=== PATIENT | female | born 2000 | race Two or more races ===

== ENCOUNTER 2024-03-02 13:24 | Emergency (ER) | payer MEDICAID ==
[~2024-03-02] VITALS: Ht 162.6 cm; Wt 55.0 kg
[2024-03-02 13:52] LABS: Urine Bacteria None Seen /hpf (None Seen)
--- NOTE | 2024-03-02 13:57 | ED.PDOC ---
GI ASSESSMENT HPI Comments 24-year-old female came to the ER stating that she has been having abdominal discomfort for the past few days progressively getting worse. Patient states that she has been having nausea vomiting for a week. Her last menstrual period was early January. She is very anxious. She does not want her mother to be informed. Denies any past medical surgical history. 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: No Pertinent DROSS PULLER History Social History Smoker: Non-Smoker Alcohol: Denies ETOH Use, Heavy Drugs: Denies Drug Use Lives In: Home Constitutional: denies: chills, diaphoresis, fatigue, fever, malaise, sweats, weakness, others EENTM: denies: blurred vision, double vision, ear bleeding, ear discharge, ear drainage, ear pain, ear ringing, eye pain, eye redness, hearing loss, mouth pain, mouth swelling, nasal discharge, nose bleeding, nose congestion, nose pain, photophobia, tearing, throat pain, throat swelling, voice changes, others Respiratory: denies: cough, hemoptysis, orthopnea, SOB at rest, shortness of breath, SOB with excertion, stridor, wheezing, others Cardiovascular: denies: chest pain, dizzy spells, diaphoresis, Dyspnea on exertion, edema, irregular heart beat, left arm pain, lightheadedness, palpitations, PND, syncope, others Gastrointestinal: reports: nausea, vomiting; denies: abdomen distended, abdominal pain, blood streaked bowels, constipated, diarrhea, dysphagia, difficulty swallowing, hematemesis, melena, poor appetite, poor fluid intake, rectal bleeding, rectal pain, others Genitourinary: denies: abnormal vagina bleeding, burning, dyspareunia, dysuria, flank pain, frequency, hematuria, incontinence, pain, , vagina discharge, urgency, others Neurological: denies: dizziness, fainting, headache, left sided numbness, left sided weakness, numbness, paresthesia, pre-existing deficit, right sided numbness, right sided weakness, seizure, speech problems, tingling, tremors, weakness, others Musculoskeletal: denies: back pain, gout, joint pain, joint swelling, muscle pain, muscle stiffness, neck pain, others Integumetry: denies: bruises, change in color, change in hair/nails, dryness, laceration, lesions, lumps, rash, wounds, others Allergic/Immunocompromised: denies: Difficulty Healing, Frequent Infections, Hives, Itching, others Hematologic/Lymphatic: denies: anemia, blood clots, easy bleeding, easy bruising, swollen glands, others Endocrine: denies: excessive hunger, excessive sweating, excessive thirst, excessive urination, flushing, intolerance to cold, intolerance to heat, unexplained weight gain, unexplained weight loss, others Psychiatric: denies: anxiety, bipolar disorder, depression, hopeless, panic disorder, schizophrenia, sleepless, suicidal, others Physical Exam General Appearance: Moderate Distress HEENT: Normal ENT Inspection, Pharynx Normal, TMs Normal Neck: Full Range of Motion, Non-Tender, Normal, Normal Inspection Respiratory: Chest Non-Tender, Lungs Clear, No Accessory Muscle Use, No Respiratory Distress, Normal Breath Sounds Cardiovascular: No Edema, No JVD, No Murmur, No Gallop, Normal Peripheral Pulses, Regular Rate/Rhythm Breast Exam: Deferred Gastrointestinal: No Organomegaly, Non Tender, No Pulsatile Mass, Normal Bowel Sounds, Soft Genitalia: Deferred Pelvic: Deferred Rectal: Deferred Extremities: No calf tenderness, Normal capillary refill, Normal inspection, Normal range of motion, Non-tender, No pedal edema Musculoskeletal : Apperance: Normal 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 Was a procedure done?: No GI differential Dx Differential Diagnosis: Constipation, Diverticular disease, Esophagitis, Gastritis/PUD, Gastroenteritis X-Ray, Labs, Meds, VS Vital Signs Date Time Temp Pulse Resp B/P (MAP) Pulse Ox O2 Delivery O2 Flow Rate FiO2 03/02/24 13:36 97.9 100 14 150/100 (117) 100 Lab Test 03/02/24 14:28 03/02/24 13:36 Range/Units Beta HCG, Quantitative 7360.9 H 1.5-4.2 mIU/mL Urine Color Yellow Yellow Urine Clarity Clear Clear Urine pH 6.0 5.0-9.0 Urine Specific [place] 1.017 1.001-1.035 Urine Protein Trace H Negative Urine Ketones 2+ H Negative Urine Blood Negative Negative /uL Urine Nitrite Negative Negative Urine Bilirubin Negative Negative Urine Urobilinogen Normal Negative mg/dL Urine Leukocyte Esterase Negative Negative /uL Urine RBC 2 0 - 4 /hpf Urine WBC 2 0 - 5 /hpf Urine Squamous Epithelial Cells Few <5 /hpf Urine Bacteria None seen None Seen /hpf Urine Mucus Few None Seen Urine Glucose Normal Normal mg/dL Urine Opiates Screen Neg NEGATIVE Urine Fentanyl Screen Neg NEGATIVE Urine Barbiturates Screen Neg NEGATIVE Urine Phencyclidine Screen Neg NEGATIVE Urine Amphetamines Screen Neg NEGATIVE Urine Benzodiazepines Screen Neg NEGATIVE Urine Cocaine Screen Neg NEGATIVE Urine Cannabinoids Screen Neg NEGATIVE Patient alert. No sign of any distress. She is . She is anxious. Saturation pristine on room air. Denies vaginal bleeding. Denies cramping. Very emotional. Beta quant appropriate. Ultrasound reviewed does show sac early . Need to repeat blood work along with ultrasound. She was told to take vitamins. Explained to the patient. Was told to follow up with her OBGYN. Was told to follow up with her primary care physician. Was told to come back if there is any problem. Time of 1ST Reevaluation: 13:56 Reevaluation 1ST: Improved Patient Education/Counseling: Diagnosis, Treatment, Prognosis Family Education/Counseling: No Family Present Departure 1 Departure Time of Disposition: 13:56 Impression: Primary Impression: Normal Qualified Codes: Z34.90 - Encounter for supervision of normal , unspecified, unspecified trimester Disposition: 01 HOME / SELF CARE / HOMELESS Condition: Good Discharged With: Self Critical Care Note Critical Care Time?: No Stability Stability form required: No Heart Score Heart Score: Heart Score Response (Comments) Value History N/A 0 EKG N/A 0 Age N/A 0 Risk Factors N/A 0 Troponin N/A 0 Total 0 PATRICE HERNANDEZ MD Mar 02, 2024 13:57
[2024-03-02] MEDS ORDERED: MORPHINE SULFATE 4 MG/ML SYR/VIAL IV ONE (14:00)
[2024-03-02] MEDS ORDERED: SODIUM CHLORIDE 0.9% 1,000 ML IVB ONE (14:00)
[2024-03-02] MEDS ORDERED: ONDANSETRON HCL 4 MG/2 ML VIAL IV ONE (14:00)
[2024-03-02 14:20] LABS: Urine Blood Negative /uL (Negative); Urine Clarity Clear (Clear); Urine Color Yellow (Yellow); Urine Mucus FEW (None Seen); Urine Protein, UAD TRACE (Negative); Urine Specific Gravity 1.017 (1.001-1.035); Urine Urobilinogen Normal (Negative); Urine WBC 2 /hpf (0 - 5)
[2024-03-02 14:34] LABS: Amphetamine Screen, Urine Neg (NEGATIVE); Benzodiazephine Screen, Urine Neg (NEGATIVE)
[2024-03-02 14:35] LABS: Barbiturate Scree,Urine Neg (NEGATIVE); Cannabinoid Screen, Urine Neg (NEGATIVE); Cocaine Screen, Urine Neg (NEGATIVE); Opiate Scree,Urine Neg (NEGATIVE); Phencyclidine Screen, Urine Neg (NEGATIVE)
--- NOTE | 2024-03-02 16:12 | DVH ---
OB ULTRASOUND <14 WEEKS: HISTORY: cramping TECHNIQUE: Multiple real-time grayscale sonographic images of the pelvis with duplex Doppler color f low, spectral and M-mode analysis. TRANSDUCERS: C1-6 COMPARISON: None FINDINGS: The uterus measures 7.3 x 4.4 x 3.5 cm The cervix is closed Right ovary measures 3.4 x 1.6 x 2.4 cm with normal Doppler color flow. Left ovary measures 3.7 x 2.4 x 2.6 cm with normal Doppler color flow. Intrauterine gestational sac is seen measuring 0.96 cm. No yolk sac or pole seen at this time. IMPRESSION: 1. Intrauterine gestational sac is seen measuring 0.96 cm. No yolk sac or pole is seen at this time as it is too early. 2. No acute abnormality detected.
[2024-03-02 17:00] VITALS: BP 140/95; PULSE 90; RESP 18; TEMP 98.4; O2SAT 98
== END 2024-03-02 17:05 | disposition home or self-care (01) ==
LOC: ER 13:24
DX: O26.891 Other specified pregnancy related conditions, first trimester (principal); R10.2 Pelvic and perineal pain; Z3A.00 Weeks of gestation of pregnancy not specified
CPT/HCPCS: 36415; 76801; 80307; 81001; 84702

== ENCOUNTER 2024-11-16 16:15 | Emergency (ER) | payer MEDICAID ==
[~2024-11-16] VITALS: Ht 162.6 cm; Wt 60.0 kg
--- NOTE | 2024-11-16 17:07 | ED.PDOC ---
History of Present Illness HPI Comments 24 y.o female presents to the ED for a chief complain to a generalized headache associated with chills, painful urination and BM output x 1 week. Patient reports having a vaginal delivery with episiotomy on 10/29/24 and went home asymptomatic. Patient mentions intermittent headaches that has no specific trigger or alleviating factors. Patient denies any vaginal bleeding, discharge, nausea, vomiting or diarrhea. She denies any medical history or allergies. 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: No Pertinent HELICOPTER UTILITY AIRCREWMAN History Social History Smoker: Non-Smoker Alcohol: Denies ETOH Use Drugs: Denies Drug Use Lives In: Home Constitutional: reports: chills, fever; denies: diaphoresis, fatigue, malaise, sweats, weakness, others EENTM: denies: blurred vision, double vision, ear bleeding, ear discharge, ear drainage, ear pain, ear ringing, eye pain, eye redness, hearing loss, mouth pain, mouth swelling, nasal discharge, nose bleeding, nose congestion, nose pain, photophobia, tearing, throat pain, throat swelling, voice changes, others Respiratory: denies: cough, hemoptysis, orthopnea, SOB at rest, shortness of breath, SOB with excertion, stridor, wheezing, others Cardiovascular: denies: chest pain, dizzy spells, diaphoresis, Dyspnea on exertion, edema, irregular heart beat, left arm pain, lightheadedness, palpit ations, PND, syncope, others Gastrointestinal: denies: abdomen distended, abdominal pain, blood streaked b owels, constipated, diarrhea, dysphagia, difficulty swallowing, hematemesis, melena, nausea, poor appetite, poor fluid intake, rectal bleeding, rectal pain, vomiting, others Genitourinary: reports: dysuria; denies: abnormal vagina bleeding, burning, dyspareunia, flank pain, frequency, hematuria, incontinence, pain, , vagina discharge, urgency, others Neurological: reports: headache; denies: dizziness, fainting, left sided numbness, left sided weakness, numbness, paresthesia, pre-existing deficit, right sided numbness, right sided weakness, seizure, speech problems, tingling, tremors, weakness, others Musculoskeletal: denies: back pain, gout, joint pain, joint swelling, muscle pain, muscle stiffness, neck pain, others Integumetry: denies: bruises, change in color, change in hair/nails, dryness, laceration, lesions, lumps, rash, wounds, others Allergic/Immunocompromised: denies: Difficulty Healing, Frequent Infections, Hives, Itching, others Hematologic/Lymphatic: denies: anemia, blood clots, easy bleeding, easy bruising, swollen glands, others Endocrine: denies: excessive hunger, excessive sweating, excessive thirst, excessive urination, flushing, intolerance to cold, intolerance to heat, unexplained weight gain, unexplained weight loss, others Psychiatric: denies: anxiety, bipolar disorder, depression, hopeless, panic disorder, schizophrenia, sleepless, suicidal, others All Other Systems: Reviewed and Negative Physical Exam General Appearance: No Apparent Distress, Normal HEENT: Normal ENT Inspection, Pharynx Normal, TMs Normal Neck: Full Range of Motion, Non-Tender, Normal, Normal Inspection Respiratory: Chest Non-Tender, Lungs Clear, No Accessory Muscle Use, No Respiratory Distress, Normal Breath Sounds Cardiovascular: No Edema, No JVD, No Murmur, No Gallop, Normal Peripheral Pulses, Regular Rate/Rhythm Breast Exam: Deferred Gastrointestinal: No Organomegaly, Non Tender, No Pulsatile Mass, Normal Bowel Sounds, Soft Genitalia: Deferred Pelvic: Deferred Rectal: Deferred Extremities: No calf tenderness, Normal capillary refill, Normal inspection, Normal range of motion, Non-tender, No pedal edema Musculoskeletal : Apperance: Normal Neurologic: Alert, driver operator II-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 Was a procedure done?: No Differential Dx Considerations may include: infection, UTI, Episiotomy or Perineal Wound Infection, headache, Benign Primary Headache, Preeclampsia X-Ray, Labs, Meds, VS Vital Signs Date Time Temp Pulse Resp B/P (MAP) Pulse Ox O2 Delivery O2 Flow Rate FiO2 11/16/24 16:17 99.9 125 16 147/91 96 99.9 Lab Test 11/16/24 17:14 11/16/24 16:00 Range/Units White Blood Count 11.6 H 4.4-10.8 10^3/uL Red Blood Count 4.86 4.0-5.20 10^6/uL Hemoglobin 14.1 12.2-16.2 g/dL Hematocrit 41.3 36.0-46.0 % Mean Corpuscular Volume 84.9 80.0-100.0 fL Mean Corpuscular Hemoglobin 29.0 28.0-32.0 pg Mean Corpuscular Hemoglobin Concent 34.2 32.0-36.0 g/dL Red Cell Distribution Width 15.0 H 11.8-14.3 % Platelet Count 241 140-450 10^3/uL Mean Platelet Volume 8.2 6.9-10.8 fL Neutrophils (%) (Auto) 89.7 H 37.0-80.0 % Lymphocytes (%) (Auto) 7.5 L 10.0-50.0 % Monocytes (%) (Auto) 2.6 0.0-12.0 % Eosinophils (%) (Auto) 0.1 0.0-7.0 % Basophils (%) (Auto) 0.1 0.0-2.0 % Neutrophils # (Auto) 10.4 H 1.6-8.6 10 ^3/uL Lymphocytes # (Auto) 0.9 0.4-5.4 10 ^3/uL Monocytes # (Auto) 0.3 0-1.3 10 ^3/uL Eosinophils # (Auto) 0 0-0.8 10 ^3/uL Basophils # (Auto) 0 0-0.2 10 ^3/uL Nucleated Red Blood Cells 0.1 % Sodium Level 135 L 136-145 mmol/L Potassium Level 3.6 3.5-5.1 mmol/L Chloride Level 102 98-107 mmol/L Carbon Dioxide Level 24 20-31 mmol/L Anion Gap 9 5-15 Blood Urea Nitrogen 6 L 9-23 mg/dL Creatinine 0.93 0.550-1.02 mg/dL Glomerular Filtration Rate Calc 89 >90 mL/min BUN/Creatinine Ratio 6.5 L 10.0-20.0 Serum Glucose 111 H 74-106 mg/dL Calcium Level 9.6 8.7-10.4 mg/dL Urine Color Light-yellow Yellow Urine Clarity Clear Clear Urine pH 6.0 5.0-9.0 Urine Specific [place] 1.016 1.001-1.035 Urine Protein Trace H Negative Urine Ketones Negative Negative Urine Blood 1+ H Negative /uL Urine Nitrite Negative Negative Urine Bilirubin Negative Negative Urine Urobilinogen Normal Negative mg/dL Urine Leukocyte Esterase Trace Negative /uL Urine RBC 5 0 - 4 /hpf Urine Microscopic WBC 5 0-5 /HPF Urine Squamous Epithelial Cells Few <5 /hpf Urine Bacteria None seen None Seen /hpf Urine Glucose Normal Normal mg/dL X-Ray, Labs, Meds, VS Comment Imaging was reviewed by this provider, there is no obvious pathological or acute disease process. Pending radiology review Labs were reviewed by this provider, Patient does have elevated white count, there was concerns for possible secondary infection related to the episiotomy and childbirth Patient be started on Keflex Vital signs reviewed by this provider, clinically stable Time of 1ST Reevaluation: 17:07 Reevaluation 1ST: Unchanged Patient Education/Counseling: Diagnosis, Treatment, Prognosis, Need For Follow Up (Follow up with PCP in the next 2-3 days. Return emergency department if symptoms worsen.) Family Education/Counseling: No Family Present SEPSIS Sepsis Screen Date sepsis recognized/suspect: Nov 16, 2024 Time Sepsis recognized/suspect: 161 Recent Procedure: No On Antibiotic Therapy: No Respiratory Rate >20: No Heart Rate >90: Yes Temp<36 C (96.8 F) or >38.3 C: No SBP <90 or MAP <65 mmHG: No New Acute Mental Status Change: No Is the patient on CPAP, BIPAP,: No Vital Signs Date Time Temp Pulse Resp B/P (MAP) Pulse Ox O2 Delivery O2 Flow Rate FiO2 11/16/24 16:17 99.9 125 16 147/91 96 99.9 Laboratory Tests Test 11/16/24 17:14 White Blood Count 11.6 10^3/uL (4.4-10.8) H Departure 1 Departure Time of Disposition: 18:32 Impression: Primary Impression: Viral illness Additional Impression: Cellulitis Qualified Codes: L03.317 - Cellulitis of buttock Disposition: HOME / SELF CARE / HOMELESS Condition: Fair e-Prescriptions Cephalexin Monohydrate (Cephalexin) 500 Mg Cap 1 CAP PO QID for 10 Days, #40 CAP Prov: MATT HERNANDEZ 11/16/24 Discharged With: Self Critical Care Note Critical Care Time?: No Stability Stability form required: No I personally scribed for MATT HERNANDEZ ([email or web address]) on 11/16/24 at 17:07. Electronically submitted by Yvette Valiente ([facility]). MATT HERNANDEZ Nov 16, 2024 17:07
[2024-11-16 17:21] LABS: Urine Protein, UAD TRACE (Negative)
[2024-11-16 17:25] LABS: Hematocrit 41.3 % (36.0-46.0); Hemoglobin 14.1 g/dL (12.2-16.2); Mean Corpuscular Hemoglobin 29.0 pg (28.0-32.0); Mean Corpuscular Volume 84.9 fL (80.0-100.0); Nucleated Red Blood Cells % 0.1 %
[2024-11-16 17:34] LABS: Chloride 102 mmol/L (98-107); Potassium 3.6 mmol/L (3.5-5.1)
[2024-11-16 17:35] LABS: Anion Gap 9 (5-15); Carbon Dioxide 24 mmol/L (20-31)
[2024-11-16 17:36] LABS: Calcium 9.6 mg/dL (8.7-10.4)
[2024-11-16 17:38] LABS: Sodium 135 mmol/L (136-145)
[2024-11-16 17:40] LABS: BUN/Creatinine Ratio 6.5 (10.0-20.0)
[2024-11-16 17:41] LABS: Blood Urea Nitrogen 6 mg/dL (9-23); Glucose 111 mg/dL (74-106)
[2024-11-16] MEDS ORDERED: CEPH500C PO (18:34)
[2024-11-16 18:53] VITALS: BP 132/86; PULSE 100; RESP 17; TEMP 99.9; O2SAT 97
== END 2024-11-16 19:00 | disposition home or self-care (01) ==
LOC: ER 16:15
DX: B34.9 Viral infection, unspecified (principal); L03.317 Cellulitis of buttock; Z79.899 Other long term (current) drug therapy
CPT/HCPCS: 36415; 80048; 81001; 85025